=== PATIENT | male | born 1950 | race Caucasian/White ===

== ENCOUNTER 2018-12-30 13:27 | Emergency (ER) | payer BC, MEDICARE ==
[~2018-12-30] VITALS: Ht 185.4 cm; Wt 102.1 kg
--- NOTE | 2018-12-30 13:40 | NUR ---
PATIENT CAEM IN DUE TO DIZZINESS; ON AND OFF; X 3 DAYS (BLURRED VISION - TEMPORARY LASTING' FOR < A MINUTE; THE PATIENT WAS TREATED WITH ZITHROMAX -2 WEEKS AGO. ON 02 @ LPM VIA NC. CONNECTED TO THE MONITOR AND PULSE OX, KEPT COMFORTABLE, WILL CONTINUE TO MONITOR ACCORDINGLY.
[2018-12-30 14:13] LABS: BASOPHILS # (AUTO) 0.1 /CMM (0.0-0.2); BASOPHILS % (AUTO) 0.9 % (0.0-2.0); EOSINOPHILS % (AUTO) 3.3 % (0.0-6.0); HEMATOCRIT 42 % (39-51); HEMOGLOBIN 14.4 g/dL (13.5-17.5); LYMPHOCYTES # (AUTO) 2.9 /CMM (0.8-4.8); LYMPHOCYTES % (AUTO) 34.2 % (20.0-44.0); MEAN CORPUSCULAR HGB CONC 35 g/dl (31.0-36.0); MEAN CORPUSCULAR VOLUME 98 fL (80-96); MONOCYTES # (AUTO) 0.9 /CMM (0.1-1.30); MONOCYTES % (AUTO) 10.9 % (2.0-12.0); NEUTROPHILS # (AUTO) 4.3 /CMM (1.8-8.9); NEUTROPHILS % (AUTO) 50.7 % (43.0-81.0); PLATELET COUNT (AUTO) 262 /CMM (150-450); RED BLOOD CELL COUNT(AUTO) 4.26 MIL/uL (4.5-6.0); WHITE BLOOD COUNT (AUTO) 8.5 K/uL (4.3-11.0)
[2018-12-30] MEDS ORDERED: IRBE300T19 PO (14:18)
[2018-12-30] MEDS ORDERED: FLUT50BL2 IH (14:18)
[2018-12-30] MEDS ORDERED: ALBU8.5H8 IH (14:18)
[2018-12-30] MEDS ORDERED: FLUT16SP NS (14:18)
[2018-12-30] MEDS ORDERED: BENZ200C53 PO (14:18)
[2018-12-30] MEDS ORDERED: ATOR80TA PO (14:18)
[2018-12-30] MEDS ORDERED: MONT10TA22 PO (14:18)
[2018-12-30] MEDS ORDERED: ALFU10TA10 PO (14:18)
[2018-12-30] MEDS ORDERED: METO-357 PO (14:18)
[2018-12-30] MEDS ORDERED: MULT-213 PO (14:18)
[2018-12-30] MEDS ORDERED: CHOL100040 PO (14:18)
[2018-12-30 14:19] LABS: CALCIUM, SERUM 9.1 mg/dL (8.5-10.1); CREATININE 1.6 mg/dL (0.6-1.3); POTASSIUM 4.5 mmol/L (3.5-5.1)
[2018-12-30] MEDS ORDERED: METOPROLOL TARTRATE 25 MG TABLET ONE (14:38)
[2018-12-30] MEDS: IV NS 0.9% 1,000 ML BAG IV ONE (14:45)
--- NOTE | 2018-12-30 15:20 | NUR ---
CALLED DR.DANA GORDON AT [phone], NO ANSWER, LEFT MESSAGE ON VOICEMAIL.
[2018-12-30] MEDS: METOPROLOL SUCCINATE 25 MG TAB.SR.24H PO SCH (15:30)
--- NOTE | 2018-12-30 15:45 | NUR ---
REPAGED DR.DANA GORDON
[2018-12-30] MEDS ORDERED: ENOXAPARIN SODIUM 40 MG/0.4 ML DISP.SYRIN SQ ONE (17:04)
[2018-12-30] MEDS ORDERED: ENOXAPARIN SODIUM 60 MG/0.6 ML DISP.SYRIN SQ ONE (17:04)
[2018-12-30] MEDS: ENOXAPARIN SODIUM 100 MG/ML DISP.SYRIN SQ ONE (17:10)
--- NOTE | 2018-12-30 17:33 | NUR ---
CALLED NURSING SUP. FOR TELE BED
--- NOTE | 2018-12-30 17:47 | NUR ---
report given to Cesar WADSWORTH for kristy.
--- NOTE | 2018-12-30 19:20 | NUR ---
report given to chris WADSWORTH for kristy.
--- NOTE | 2018-12-30 19:27 | NUR ---
LAYING DOWN IN BED AWAKE AND ALERTHAVING A SANDWICH. REPORTED FEELING MUCH BETTER. NO MORE DIZZINESS. VSS. ON CONT MONITORING.
--- NOTE | 2018-12-30 21:01 | NUR ---
Patient is resting comfortably . VSS. WILL CONT TO MONITOR ,
--- NOTE | 2018-12-30 22:09 | NUR ---
CALL FROM [facility] [employer]. PT ACCEPTED TO [facility] BY DR FITCH. ROOM 543-A. # FOR REPORT [phone].
--- NOTE | 2018-12-30 22:21 | NUR ---
ETA FOR AMBULANCE IS 1886
--- NOTE | 2018-12-30 22:46 | NUR ---
REPORT GIVEN TO [facility]
[2018-12-31] MEDS ORDERED: METOPROLOL TARTRATE INJ 5 MG/5 ML AMPUL IV ONE (00:30)
--- NOTE | 2018-12-31 00:32 | NUR ---
per dr amaya to hold on metoprolol Iv. BP: 143/86, hr;76
--- NOTE | 2018-12-31 00:47 | NUR ---
Patient is resting comfortably in bed with eyes closed. Easily aroused. VSS STILL AWAITING FOR THE TRANSPO
--- NOTE | 2018-12-31 00:55 | NUR ---
CALLED [facility] FOR TRANSPORTATION ETA 45 MIN-1 HR. TRIP #[id number]
[2018-12-31 01:12] VITALS: BP 144/83
--- NOTE | 2018-12-31 02:26 | NUR ---
GAVE REPORT TO KIARA Moyer FOR TRANSPORTATION JOSÉ MIGUEL
--- NOTE | 2018-12-31 02:50 | NUR ---
pt was picked up and transferred to [facility] in stable condition under acls protocol by [facility]. vss, report givent to the paramedics.
== END 2018-12-31 02:50 | disposition short-term general hospital (02) ==
LOC: ER 13:31
DX: I48.91 Unspecified atrial fibrillation (principal); R42 Dizziness and giddiness; I10 Essential (primary) hypertension; E78.5 Hyperlipidemia, unspecified; N40.0 Benign prostatic hyperplasia without lower urinary tract symptoms; F10.10 Alcohol abuse, uncomplicated; Y90.9 Presence of alcohol in blood, level not specified; Z60.2 Problems related to living alone
CPT/HCPCS: 36415; 71045; 80048; 84443; 84484; 85025; 85730; 87081; 93005 ×4; 96360; 96372; 99291; J1650; J7030